=== PATIENT | female | born 1980 | race Caucasian/White ===

== ENCOUNTER 2017-04-21 17:05 | Emergency (ER) | payer MEDICAID ==
[2017-04-21 17:14] VITALS: O2SAT 96
[2017-04-21 17:55] VITALS: BP 135/57; PULSE 93; RESP 16
--- NOTE | 2017-04-21 18:34 | EDPHY ---
H & P Smoking Status: Never smoked Time Seen by Provider: 04/21/17 17:17 HPI/ROS: CHIEF COMPLAINT: left ankle pain HISTORY OF PRESENT ILLNESS: This 36-year-old female presents to the emergency department after an inversion ankle injury 6 days ago. The patient complains of pain to the lateral ankle and swelling. The patient has no other complaints , denies numbness or tingling to affected limb. (Deanne Hughes) Physical Exam: General appearance: alert no distress Left ankle: There is swelling and tenderness over the lateral ankle. TTP to ATFL and CFL. There is no tenderness over the achilles tendon. The foot is non-tender without swelling. No TTP over 5th metatarsal. Neurologic exam: The patient has normal sensation and motor function distal to the injury. Vascular exam: Normal pulses and capillary refill in the foot (Deanne Hughes) Constitutional: Initial Vital Signs Temperature (C) 37 C 04/21/17 17:11 Heart Rate 116 H 04/21/17 17:11 Respiratory Rate 22 H 04/21/17 17:11 Blood Pressure 124/80 H 04/21/17 17:11 O2 Sat (%) 96 04/21/17 17:11 O2 Delivery Mode Room Air Allergies/Adverse Reactions: acetaminophen [From Tylenol] Allergy (Verified 04/21/17 17:10) Home Medications: Medication Instructions Recorded PRISTIQ 04/21/17 Prazosin HCl 04/21/17 MDM/Departure - [facility] Imaging: I viewed and interpreted images myself - [facility] ED Course/Re-evaluation: The patient was evaluated and managed by the Physician Whiskey Regauger/ Nurse Practitioner. My co-signature indicates that I have reviewed this chart and I agree with the findings and plan of care as documented. I am the secondary supervising physician. (Trish Colvin) - Depart Disposition: Home, Routine, Self-Care Clinical Impression: Left ankle sprain Qualifiers: Encounter type: initial encounter Involved ligament of ankle: unspecified ligament Qualified Code(s): S93.402A - Sprain of unspecified ligament of left ankle, initial encounter Condition: Good Instructions: Ankle Sprain (ED) Additional Instructions: Rest, ice, elevate, take 600 mg of ibuprofen every 8 hours with food for 3-5 days. Wear ankle stirrup splint. Use crutches as needed for ambulation. Follow up with orthopedist for symptoms that are not improving in the next 7-10 days. Referrals: Ace Lujan MD [Medical Doctor] - As per Instructions (Orthopedist on-call)
[2017-04-21 18:49] VITALS: TEMP 97.7
== END 2017-04-21 18:49 | disposition home or self-care (01) ==
LOC: EEVIPCON 17:05
DX: S93.402A Sprain of unspecified ligament of left ankle, initial encounter (principal); X58.XXXA Exposure to other specified factors, initial encounter
CPT/HCPCS: L4350